=== PATIENT | female | born 1965 | race Hispanic/Latino ===

== ENCOUNTER 2018-04-22 14:12 | Emergency (ER) | payer OTHER ==
[~2018-04-22] VITALS: Ht 157.5 cm; Wt 99.8 kg
[2018-04-22 15:04] LABS: ABSOLUTE BASOPHIL COUNT 0.1 /CUMM (0.0-0.2); ABSOLUTE EOSINOPHIL COUNT 0.4 /CUMM (0.0-0.7); ABSOLUTE GRANULOCYTE CT 5.9 /CUMM (1.4-6.5); ABSOLUTE LYMPH COUNT 2.6 /CUMM (1.2-3.4); ABSOLUTE MONOCYTE COUNT 0.5 /CUMM (0.10-0.60); BASOPHIL % 0.7 % (0.0-2.0); EOSINOPHIL % 4.6 % (0-5); GRANULOCYTE % 61.9 % (42.2-75.2); MEAN CORPUSCULAR HGB CONC 34.5 G/DL (33.0-37.0); MEAN CORPUSCULAR VOLUME 92.7 FL (81.0-99.0); MEAN PLATELET VOLUME 8.6 FL (7.4-10.4); PLATELET COUNT 234 /CUMM (130-400); RBC DISTRIBUTION WIDTH 13.8 % (11.5-14.5); RED BLOOD CELL CT 4.21 /CUMM (4.20-5.40); WHITE BLOOD CELL COUNT 9.5 /CUMM (4.8-10.8)
--- NOTE | 2018-04-22 16:26 | CT SCAN REPORT ---
EXAMINATION: CT ABDOMEN AND PELVIS WITHOUT CONTRAST CLINICAL INFORMATION: Bilateral back pain. Recent UTI. Negative urinary analysis. COMPARISON: None TECHNIQUE: Multidetector volumetric imaging was performed from the superior aspect of the liver through the pubic symphysis. Sagittal and coronal reformatted images were obtained on the technologist's workstation. DLP: 1037.38 mGy-cm FINDINGS: LUNG BASES: The visualized lung bases are unremarkable. LIVER, GALLBLADDER, AND BILIARY TREE: The liver is normal in size, shape, and attenuation. No focal hepatic lesion or biliary ductal dilatation is present. The gallbladder is unremarkable with no evidence of radiopaque gallstones, gallbladder wall thickening, or obvious pericholecystic inflammatory changes. PANCREAS: There is atrophy of the pancreas. SPLEEN: Unremarkable. ADRENAL GLANDS: The are unremarkable. KIDNEYS AND URETERS: There is a 0.7 x 0.3 cm stone in the proximal right ureter just distal to the ureteropelvic junction. This is causing mild obstruction with mild edema around the renal pelvis and the proximal right ureter. The left kidney and ureter are normal with no stone or hydronephrosis. BLADDER: Unremarkable. GASTROINTESTINAL TRACT: There is a large volume of stool throughout the colon. Most of the stool is in the cecum and ascending colon. There is no acute change of the bowel. No bowel obstruction. No bowel wall thickening or edema. There are no diverticula. The appendix is not visualized. There is no abnormality of the small bowel. ABDOMINAL WALL: No significant hernia is appreciated. LYMPH NODES: Normal. VASCULAR: Unremarkable. PELVIC VISCERA: Uterus is absent. There is no adnexal abnormality. OSSEOUS STRUCTURES: Degenerative change of the spine with vacuum disc phenomenon at L5-S1. Subchondral sclerosis and endplate spurring present of the vertebrae at L5-S1. There is minor degenerative lipping at the anterior endplates of the thoracic and lumbar spine and mild facet joint arthrosis at the lower lumbar spine. IMPRESSION: Obstructing stone at the proximal right ureter measuring 7 x 3 mm causing mild hydronephrosis.
--- NOTE | 2018-04-22 16:58 | ED GI/GU/ABDOMINAL COMPLAINT ---
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 Triage Nurses Notes Reviewed? yes ? N Is pt currently ? No Onset: UNCLEAR Duration: day(s): (4) Timing: single episode today Quality/Severity: sharpness, severe Location: right flank Radiation: no radiation Activities at Onset: none HPI: Patient presents for Evaluation of urinary tract signs and symptoms. Patient states that she has had 2 rounds of antibiotics for urinary tract infections over the past few weeks. Her symptoms have returned again over the past 4 days. Patient has been experiencing intermittent hesitancy and frequency. In addition the patient has felt chills palpitations and has had a decreased appetite. Nothing seems to make her feel better and she often awakens from sleep due to pain. Past History Travel History Traveled to [place] past 21 day No Medical History Any Pertinent Medical History? see below for history Neurological: NONE EENT: NONE Cardiovascular: CHF, hypertension, hyperlipidemia Respiratory: asthma Gastrointestinal: constipation Musculoskeletal: NEUROPATHY Psychiatric: anxiety, depression Endocrine: diabetes Blood Disorders: NONE Cancer(s): NONE POWDER MONKEY/Reproductive: NONE Surgical History Surgical History: non-contributory Psychosocial History What is your primary language American Tobacco Use: Never used ETOH Use: denies use Illicit Drug Use: denies illicit drug use Family History Hx Contributory? No Review of Systems Review of Systems Constitutional: Reports: no symptoms. EENTM: Reports: no symptoms. Respiratory: Reports: no symptoms. Cardiovascular: Reports: no symptoms. GI: Reports: no symptoms. Genitourinary: Reports: see HPI. Musculoskeletal: Reports: no symptoms. Skin: Reports: no symptoms. Neurological/Psychological: Reports: no symptoms. Hematologic/Endocrine: Reports: no symptoms. Immunologic/Allergic: Reports: no symptoms. All Other Systems: Reviewed and Negative Physical Exam Physical Exam Gastrointestinal: SEE BELOW Comments: Gen.: Well-nourished, well-developed, no acute respiratory distress. Head: Normocephalic, atraumatic. Eyes: Normal inspection bilaterally Ears: Normal inspection bilaterally Nose: Normal inspection Throat/mouth : Moist mucosa Neck: Supple, full range of motion, no goiter Heart: Regular rate and rhythm, no murmurs rubs or gallops Lungs: Clear to auscultation bilaterally with normal air entry Chest: Nontender Back: Normal range of motion, right CVAT Abdomen: Soft, nontender, nondistended, normal bowel sounds Extremities: Normal range of motion grossly, equal radial pulses, no cyanosis clubbing or edema Neurologic: Cranial nerves grossly intact, speech is clear Skin: warm and dry Psychiatric: Calm, cooperative, no apparent delusions or hallucinations Core Measures ACS in differential dx? No Sepsis Present: No Sepsis Focused Exam Completed? No Progress Differential Diagnosis: uti, PYELONEPHRITIS, RENAL COLIC, INTESTINAL COLIC, MUSCLE STRAIN Plan of Care: Orders Procedure Date/time Status LACTIC ACID 04/22 1722 Active Add-on Test (ER Only) 04/22 1505 Active EKG 04/22 1505 Active TROPONIN LEVEL 04/22 1453 Complete CULTURE,URINE 04/22 1422 Active URINALYSIS 04/22 1422 Complete LACTIC ACID 04/22 1422 Complete COMPREHENSIVE METABOLIC PANEL 04/22 1422 Complete CBC WITHOUT DIFFERENTIAL 04/22 1422 Complete Current Medications Sig/Aleksandr Start time Last Medication Dose Stop Time Status Admin Morphine Sulfate 4 MG ONCE ONE 04/22 1730 UNVr 04/22 (MORPHINE SULFATE) 04/22 1731 1734 Ondansetron HCl 4 MG ONCE ONE 04/22 1730 UNVr 04/22 (Zofran) 04/22 1731 1734 Laboratory Tests 04/22/18 1453: Anion Gap 11, Estimated GFR 52 L, BUN/Creatinine Ratio 15.5, Glucose 153 H, Lactic Acid 2.0, Calcium 10.1, Total Bilirubin 0.4, AST 24, ALT 36, Alkaline Phosphatase 71, Troponin I < 0.01, Total Protein 8.3 H, Albumin 4.9, Globulin 3.4, Albumin/Globulin Ratio 1.4, CBC w Diff NO MAN DIFF REQ, RBC 4.21, MCV 92.7, MCH 32.0 H, MCHC 34.5, RDW 13.8, MPV 8.6, Gran % 61.9, Lymphocytes % 27.4, Monocytes % 5.4, Eosinophils % 4.6, Basophils % 0.7, Absolute Granulocytes 5.9, Absolute Lymphocytes 2.6, Absolute Monocytes 0.5, Absolute Eosinophils 0.4, Absolute Basophils 0.1 04/22/187: Urine Color YEL, Urine Clarity CLEAR, Urine pH 7.5, Ur Specific [place] 1.015, Urine Protein NEG, Urine Ketones NEG, Urine Nitrite NEG, Urine Bilirubin NEG, Urine Urobilinogen 0.2, Ur Leukocyte Esterase SMALL H, Ur Microscopic SEDIMENT EXAMINED, Urine RBC RARE, Urine WBC RARE, Ur Epithelial Cells FEW, Urine Bacteria RARE H, Urine Hemoglobin NEG, Urine Glucose NEG Microbiology 04/22 1427 URINE ROUT: Urine Culture - RECD Diagnostic Imaging: Discussed w/RAD: CT Scan. Radiology Impression: PATIENT: CRIS PHAN I PRESENT AGE: 52 PATIENT ACCOUNT NO: [id number] : 64 LOCATION: [facility] ORDERING PHYSICIAN: Ca BERGER SERVICE DATE: 04/22/18 EXAM TYPE: CAT - CT ABD & PELVIS W/O IV CONTRAS EXAMINATION: CT ABDOMEN AND PELVIS WITHOUT CONTRAST CLINICAL INFORMATION: Bilateral back pain. Recent UTI. Negative urinary analysis. COMPARISON: None TECHNIQUE: Multidetector volumetric imaging was performed from the superior aspect of the liver through the pubic symphysis. Sagittal and coronal reformatted images were obtained on the technologist's workstation. DLP: 1037.38 mGy-cm FINDINGS: LUNG BASES: The visualized lung bases are unremarkable. LIVER, GALLBLADDER, AND BILIARY TREE: The liver is normal in size, shape, and attenuation. No focal hepatic lesion or biliary ductal dilatation is present. The gallbladder is unremarkable with no evidence of radiopaque gallstones, gallbladder wall thickening, or obvious pericholecystic inflammatory changes. PANCREAS: There is atrophy of the pancreas. SPLEEN: Unremarkable. ADRENAL GLANDS: The are unremarkable. KIDNEYS AND URETERS: There is a 0.7 x 0.3 cm stone in the proximal right ureter just distal to the ureteropelvic junction. This is causing mild obstruction with mild edema around the renal pelvis and the proximal right ureter. The left kidney and ureter are normal with no stone or hydronephrosis. BLADDER: Unremarkable. GASTROINTESTINAL TRACT: There is a large volume of stool throughout the colon. Most of the stool is in the cecum and ascending colon. There is no acute change of the bowel. No bowel obstruction. No bowel wall thickening or edema. There are no diverticula. The appendix is not visualized. There is no abnormality of the small bowel. ABDOMINAL WALL: No significant hernia is appreciated. LYMPH NODES: Normal. VASCULAR: Unremarkable. PELVIC VISCERA: Uterus is absent. There is no adnexal abnormality. OSSEOUS STRUCTURES: Degenerative change of the spine with vacuum disc phenomenon at L5-S1. Subchondral sclerosis and endplate spurring present of the vertebrae at L5-S1. There is minor degenerative lipping at the anterior endplates of the thoracic and lumbar spine and mild facet joint arthrosis at the lower lumbar spine. IMPRESSION: Obstructing stone at the proximal right ureter measuring 7 x 3 mm causing mild hydronephrosis. DICTATED BY: Joselito Ibarra MD DATE/TIME DICTATED:04/22/181615 COIN BOX INSPECTOR:TAMMIE DATE/TIME TRANSCRIBED:04/22/181615 CONFIDENTIAL, DO NOT COPY WITHOUT APPROPRIATE AUTHORIZATION. <Electronically signed in Other Vendor System> SIGNED BY: Joselito Ibarra MD 04/22/181625 Initial ED EKG: none Comments: 04/22/2018 5:39:51 PM patient is feeling better after medications. 04/22/2018 6:13:53 PM I attempted to contact patient's neurologist Dr. stone without success. The patient wishes to go home and has declined waiting for the call back. Departure Departure Disposition: HOME OR SELF CARE Condition: Stable Clinical Impression Primary Impression: Renal colic on right side Referrals: Patient Has No Primary Care Dr (PCP/Family) Ibrahima TIWARI,Scottie Love Additional Instructions: Ketorolac as prescribed for pain. Add Redmond if necessary. Follow-up with Dr. stone this week for reevaluation. Return if any concerns or sudden worsening. Please note that there might be incidental findings in your evaluation that are unrelated to the current emergency department visit. Please notify your primary care doctor about this emergency department visit in order to obtain and review all of the testing performed so that these incidental findings can be monitored as needed. If you had an x-ray performed, please understand that some fractures or other findings may not be seen on the initial set of x-rays. If your symptoms persist you might need a repeat set of x-rays to check for such a fracture. If you had a laceration evaluated, please understand that foreign bodies such as glass or wood may not be visible to the naked eye or on plain x-rays. If the wound becomes red, swollen, increasingly more painful or if there is any drainage from the wound, please have it reevaluated by a physician for the possibility of a retained foreign body. If you're unable to follow up as outlined in the discharge instructions please return to the emergency department. Thank you for choosing the [facility] Emergency Department for your care. It was a pleasure to serve you today. Jcarlos Weaver M.D. [facility] Departure Forms: Customer Survey General Discharge Information Prescriptions: Current Visit Scripts Ketorolac Tromethamine 1 TAB PO Q6P PRN KIDNEY STONE PAIN #16 TAB PATIENT RECEIVED iv KETOROLAC IN THE EMERGENCY DEPARTMENT Hydrocodone/Acetaminophen (Redmond 5-325 Tablet) 1 TAB PO Q6P PRN pain #20 TAB
[2018-04-22 18:10] VITALS: BP 167/92
[2018-04-22] MEDS ORDERED: KETOROLAC TROME10 M1 PO (18:17)
[2018-04-22] MEDS ORDERED: NORCO 5-325 TA1 EACH PO (18:17)
== END 2018-04-22 18:35 ==
LOC: ERH 14:12
PROVIDERS: Physician Assistant
DX: N23 Unspecified renal colic (principal); R39.11 Hesitancy of micturition; R35.0 Frequency of micturition; R10.9 Unspecified abdominal pain
CPT/HCPCS: 74176; 81001; 87086; 93005; 93010; 96374; 96375; J1885; J2405